=== PATIENT | female | born 1995 | race Hispanic/Latino ===

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

== ENCOUNTER 2017-04-14 01:10 | Emergency (ER) | payer OTHER ==
[2017-04-14] MEDS: NS 1,000 ML IV (02:36)
[2017-04-14] MEDS: KETOROLAC 30 MG/ML VIAL (J1885) IV (02:36)
[2017-04-14 02:47] LABS: BASO % 0.4 % (0.0-1.0); EOS # 0.2 10^3/uL (0.0-0.50); EOS % 1.9 % (0.0-3.0); HEMATOCRIT 36.8 % (36.0-47.0); HEMOGLOBIN 12.9 g/dl (12.0-16.0); IMMATURE GRANULOCYTE % 0.3 % (0-3.0); LYMPH # 1.7 10^3/uL (1.5-6.5); LYMPH % 17.8 % (24.0-44.0); MEAN CORPUSCULAR HEMOGLOBIN 31.9 pg (27.0-33.0); MEAN CORPUSCULAR HGB CONC 35.1 g/dl (32.0-36.5); MEAN CORPUSCULAR VOLUME 91.1 fl (80.0-96.0); MONO % 10.4 % (0.0-5.0); NEUTROPHILS # 6.5 10^3/uL (1.8-7.7); NEUTROPHILS % 69.2 % (36.0-66.0); PLATELET COUNT, AUTOMATED 251 10^3/uL (150-450); RED BLOOD COUNT 4.04 10^6/uL (4.00-5.40); RED CELL DISTRIBUTION WIDTH 12.4 % (11.5-14.5); WHITE BLOOD COUNT 9.4 10^3/uL (4.0-10.0)
[2017-04-14] MEDS: GASTROGRAFIN SOLUTION 30ML PO ×2 (02:49→03:20)
[2017-04-14 02:51] LABS: APPEARANCE, URINE CLOUDY (CLEAR); BACTERIA, URINE AUTO NEGATIVE (NEGATIVE); BILIRUBIN, URINE AUTO NEGATIVE (NEGATIVE); BLOOD, URINE BLOOD NEGATIVE (NEGATIVE); COLOR, URINE YELLOW (YELLOW); GLUCOSE, URINE (UA) AUTO NEGATIVE (NEGATIVE); KETONE, URINE AUTO NEGATIVE (NEGATIVE); LEUKOCYTE ESTERASE, URINE AUTO 1+ (NEGATIVE); MUCUS, URINE SMALL (NEGATIVE); NITRITE, URINE AUTO NEGATIVE (NEGATIVE); PROTEIN, URINE AUTO NEGATIVE (NEGATIVE); RBC, URINE AUTO 2 /HPF (0-3); SPECIFIC GRAVITY URINE AUTO 1.017 (1.002-1.035); SQUAMOUS EPITHELIAL CELL UR AU 21 /HPF (0-6); WBC, URINE AUTO 15 /HPF (0-3)
[2017-04-14 03:02] LABS: CONTROL LINE HCG INT CTR LINE PRESENT; HCG, SERUM QUALITATIVE NEGATIVE (NEGATIVE)
[2017-04-14 03:09] LABS: ALBUMIN 3.7 GM/DL (3.2-5.2); ALKALINE PHOSPHATASE 65 U/L (45-117); ALT/SGPT 21 U/L (12-78); ANION GAP 8 MEQ/L (8-16); AST/SGOT 14 U/L (7-37); BILIRUBIN,DIRECT < 0.1 MG/DL (0.0-0.2); BILIRUBIN,TOTAL 0.4 MG/DL (0.2-1.0); BLOOD UREA NITROGEN 9 MG/DL (7-18); CALCIUM LEVEL 8.2 MG/DL (8.5-10.1); CARBON DIOXIDE LEVEL 28 MEQ/L (21-32); CHLORIDE LEVEL 107 MEQ/L (98-107); GLUCOSE, FASTING 87 MG/DL (70-100); LIPASE 108 U/L (73-393); POTASSIUM SERUM 3.6 MEQ/L (3.5-5.1); SODIUM LEVEL 143 MEQ/L (136-145); TOTAL PROTEIN 7.4 GM/DL (6.4-8.2)
[2017-04-14] MEDS ORDERED: ISOVUE-370 76% 100ML VIAL (Q9967) As Ordered (04:10)
[2017-04-14] MEDS: NORCO 5/325MG TABLET (BULK FOR ED) PO (05:41)
== END 2017-04-14 05:47 | disposition home or self-care (01) ==
LOC: M ED 01:10
DX: N83.201 Unspecified ovarian cyst, right side (principal)
CPT/HCPCS: Q9963

== ENCOUNTER 2017-07-02 22:45 | Emergency (ER) | payer OTHER ==
[2017-07-03 01:54] LABS: BASO % 0.3 % (0.0-1.0); EOS # 0.2 10^3/uL (0.0-0.50); EOS % 2.1 % (0.0-3.0); HEMATOCRIT 41.4 % (36.0-47.0); HEMOGLOBIN 14.5 g/dl (12.0-15.5); IMMATURE GRANULOCYTE % 0.2 % (0-3.0); LYMPH # 2.4 10^3/uL (1.5-6.5); LYMPH % 23.2 % (24.0-44.0); MEAN CORPUSCULAR HEMOGLOBIN 31.4 pg (27.0-33.0); MEAN CORPUSCULAR VOLUME 89.6 fl (80.0-96.0); MONO # 0.9 10^3/uL (0.0-0.8); MONO % 8.9 % (0.0-5.0); NEUTROPHILS # 6.7 10^3/uL (1.8-7.7); NEUTROPHILS % 65.3 % (36.0-66.0); PLATELET COUNT, AUTOMATED 272 10^3/uL (150-450); RED BLOOD COUNT 4.62 10^6/uL (4.00-5.40); RED CELL DISTRIBUTION WIDTH 12.1 % (11.5-14.5); WHITE BLOOD COUNT 10.3 10^3/uL (4.0-10.0)
[2017-07-03 02:13] LABS: CONTROL LINE HCG INT CTR LINE PRESENT; HCG, SERUM QUALITATIVE NEGATIVE (NEGATIVE)
[2017-07-03 02:17] LABS: ANION GAP 6 MEQ/L (8-16); BLOOD UREA NITROGEN 12 MG/DL (7-18); CALCIUM LEVEL 9.2 MG/DL (8.5-10.1); CARBON DIOXIDE LEVEL 27 MEQ/L (21-32); CHLORIDE LEVEL 105 MEQ/L (98-107); CREATININE FOR GFR 0.74 MG/DL (0.55-1.30); GLUCOSE, FASTING 84 MG/DL (70-100); POTASSIUM SERUM 3.8 MEQ/L (3.5-5.1); SODIUM LEVEL 138 MEQ/L (136-145)
[2017-07-03] MEDS ORDERED: ISOVUE-370 76% 100ML VIAL (Q9967) As Ordered (03:15)
[2017-07-04 14:23] LABS: BEDSIDE GLUCOSE 92 MG/DL (70-105)
== END 2017-07-03 05:40 | disposition home or self-care (01) ==
LOC: M ED 22:45
DX: R06.4 Hyperventilation (principal); R20.9 Unspecified disturbances of skin sensation
CPT/HCPCS: Q9967

== ENCOUNTER 2017-07-13 23:34 | Emergency (ER) | payer OTHER ==
[2017-07-14] MEDS: diazePAM 5 MG TAB PO (00:30)
[2017-07-14] MEDS: KETOROLAC 60 MG/2 ML VIAL (J1885) IM (00:30)
== END 2017-07-14 01:52 | disposition home or self-care (01) ==
LOC: M ED 23:34
DX: M62.830 Muscle spasm of back (principal); R51 Headache; F17.200 Nicotine dependence, unspecified, uncomplicated; Z79.899 Other long term (current) drug therapy
CPT/HCPCS: J1885

== ENCOUNTER 2017-08-20 06:57 | Emergency (ER) | payer OTHER ==
[2017-08-20 07:57] LABS: BASO # 0.1 10^3/uL (0.0-0.2); BASO % 0.5 % (0.0-1.0); EOS # 0.2 10^3/uL (0.0-0.50); HEMATOCRIT 36.7 % (36.0-47.0); HEMOGLOBIN 13.2 g/dl (12.0-15.5); IMMATURE GRANULOCYTE % 0.5 % (0-3.0); LYMPH # 1.7 10^3/uL (1.5-6.5); LYMPH % 15.2 % (24.0-44.0); MEAN CORPUSCULAR HEMOGLOBIN 31.4 pg (27.0-33.0); MEAN CORPUSCULAR VOLUME 87.2 fl (80.0-96.0); MONO # 1.1 10^3/uL (0.0-0.8); MONO % 9.6 % (0.0-5.0); NEUTROPHILS # 7.9 10^3/uL (1.8-7.7); NEUTROPHILS % 72.2 % (36.0-66.0); PLATELET COUNT, AUTOMATED 233 10^3/uL (150-450); RED BLOOD COUNT 4.21 10^6/uL (4.00-5.40); RED CELL DISTRIBUTION WIDTH 12.6 % (11.5-14.5); WHITE BLOOD COUNT 10.9 10^3/uL (4.0-10.0)
[2017-08-20 08:09] LABS: KETONE, URINE AUTO RFX NEGATIVE (NEGATIVE); LEUKOCYTE ESTERASE UR AUTO RFX NEGATIVE (NEGATIVE); MUCUS, URINE RFX SMALL (NEGATIVE); NITRITE, URINE AUTO RFX NEGATIVE (NEGATIVE); RBC, URINE AUTO RFX 1 /HPF (0-3); SPECIFIC GRAVITY UR AUTO RFX 1.002 (1.002-1.035); SQUAM EPITHELIAL CELL UR AURFX 1 /HPF (0-6); WBC, URINE AUTO RFX 0 /HPF (0-3)
[2017-08-20 08:46] LABS: HCG, SERUM QUANTITATIVE 21646 MIU/ML
[2017-08-20 10:45] LABS: CHLAMYDIA DNA AMPLIFICATION NEGATIVE (NEGATIVE); GC DNA AMPLIFICATION NEGATIVE (NEGATIVE)
== END 2017-08-20 09:21 | disposition home or self-care (01) ==
LOC: M ED 06:57
DX: O20.0 Threatened abortion (principal); Z3A.01 Less than 8 weeks gestation of pregnancy; O09.291 Supervision of pregnancy with other poor reproductive or obstetric history, first trimester
CPT/HCPCS: 76801

== ENCOUNTER 2017-11-10 21:13 | Emergency (ER) | payer OTHER ==
[2017-11-10 23:00] LABS: BASO % 0.2 % (0.0-1.0); EOS # 0.2 10^3/uL (0.0-0.50); EOS % 1.5 % (0.0-3.0); HEMATOCRIT 38.4 % (36.0-47.0); HEMOGLOBIN 13.6 g/dl (12.0-15.5); IMMATURE GRANULOCYTE % 0.5 % (0-3.0); LYMPH # 2.3 10^3/uL (1.5-6.5); LYMPH % 17.6 % (24.0-44.0); MEAN CORPUSCULAR HEMOGLOBIN 31.6 pg (27.0-33.0); MEAN CORPUSCULAR HGB CONC 35.4 g/dl (32.0-36.5); MEAN CORPUSCULAR VOLUME 89.3 fl (80.0-96.0); MONO # 0.9 10^3/uL (0.0-0.8); MONO % 6.8 % (0.0-5.0); NEUTROPHILS # 9.7 10^3/uL (1.8-7.7); NEUTROPHILS % 73.4 % (36.0-66.0); PLATELET COUNT, AUTOMATED 230 10^3/uL (150-450); RED CELL DISTRIBUTION WIDTH 12.6 % (11.5-14.5); WHITE BLOOD COUNT 13.2 10^3/uL (4.0-10.0)
[2017-11-10 23:02] LABS: KETONE, URINE AUTO RFX NEGATIVE (NEGATIVE); LEUKOCYTE ESTERASE UR AUTO RFX NEGATIVE (NEGATIVE); NITRITE, URINE AUTO RFX NEGATIVE (NEGATIVE); RBC, URINE AUTO RFX 2 /HPF (0-3); SPECIFIC GRAVITY UR AUTO RFX 1.013 (1.002-1.035); SQUAM EPITHELIAL CELL UR AURFX 2 /HPF (0-6); WBC, URINE AUTO RFX 1 /HPF (0-3)
[2017-11-10] MEDS: ACETAMINOPHEN TAB 650MG DOSE (2X325MG) PO (23:22)
[2017-11-11 00:12] LABS: CHLAMYDIA DNA AMPLIFICATION NEGATIVE (NEGATIVE); GC DNA AMPLIFICATION NEGATIVE (NEGATIVE)
== END 2017-11-11 00:54 | disposition home or self-care (01) ==
LOC: M ED 11-11 00:54
DX: O20.9 Hemorrhage in early pregnancy, unspecified (principal); Z3A.18 18 weeks gestation of pregnancy; Z87.42 Personal history of other diseases of the female genital tract
CPT/HCPCS: 76811

== ENCOUNTER → 2018-01-21 | Outpatient (CLI) | payer OTHER | LOC: M RAD 09:03 | DX: Z36.89 Encounter for other specified antenatal screening (principal); Z3A.28 28 weeks gestation of pregnancy | CPT/HCPCS: 76816 ==

== ENCOUNTER 2018-03-24 18:47 | Outpatient (CLI) | payer OTHER ==
[~2018-03-24] VITALS: Ht 157.5 cm; Wt 128.9 kg
[~2018-03-24 18:47] MED LIST: HYDR50TA70 PO; NAPR-50; NAPR-50 PO; PRENTAB40 PO; ROBA500T PO; SERT50TA PO
[2018-03-24 19:45] VITALS: BP 117/65
[2018-03-24 19:47] LABS: HEMATOCRIT 36.2 % (36.0-47.0); HEMOGLOBIN 12.7 g/dl (12.0-15.5); MEAN CORPUSCULAR HEMOGLOBIN 30.5 pg (27.0-33.0); MEAN CORPUSCULAR HGB CONC 35.1 g/dl (32.0-36.5); PLATELET COUNT, AUTOMATED 260 10^3/uL (150-450); RED BLOOD COUNT 4.16 10^6/uL (4.00-5.40); WHITE BLOOD COUNT 10.7 10^3/uL (4.0-10.0)
[2018-03-24 19:59] LABS: INR 1.01; PROTHROMBIN TIME 13.4 SECONDS (12.1-14.4)
[2018-03-24 20:00] LABS: PARTIAL THROMBOPLASTIN TIME 27.7 SECONDS (25.4-37.6)
--- NOTE | 2018-03-24 22:37 | REPVR ---
EXAM: US Biophysical Profile Without Non-Stress Test EXAM DATE/TIME: 03/24/2018 10:05 PM CLINICAL HISTORY: 23 years old, female; Injury or trauma; Fall; Injury indication: Fell on abdomen and face, eval placenta; Injury date: 03/24/18; ; Additional info: Fell on abdomen and face, eval placenta also TECHNIQUE: US biophysical profile without non-stress testing. COMPARISON: US OBS SINGEL GEST 11/10/2017 10:52 PM FINDINGS: Breathin/2 Gross body movements: 2/2 tone: 2/2 Qualitative amniotic fluid: 2/2 AAKASH 9.5 cm. Cephalic presentation Cervical length 3.3 cm. Antral fundal placenta. No placenta previa. heart rate 149 beats per minute. IMPRESSION: Biophysical profile score is 8 out of 8. Electronically signed by: Michael Hurt On 03/24/2018 22:36:55 PM
[2018-03-24 22:42] VITALS: BP 125/75
[2018-03-25 00:07] VITALS: BP 135/79
== END 2018-03-25 00:15 | disposition home or self-care (01) ==
LOC: M LDO 18:47
PROVIDERS: ATTEND Obstetrics & Gynecology
DX: O99.89 Other specified diseases and conditions complicating pregnancy, childbirth and the puerperium (principal); Z3A.37 37 weeks gestation of pregnancy; W19.XXXA Unspecified fall, initial encounter
CPT/HCPCS: 36415; 59025; 76815; 76819; 76820; 85027; 85384; 85610; 85730; G0378; G0463

== ENCOUNTER 2018-04-08 14:38 | Outpatient (CLI) | payer OTHER ==
[~2018-04-08] VITALS: Ht 157.5 cm; Wt 129.0 kg
[2018-04-08 15:03] VITALS: BP 140/67
[2018-04-08 15:34] VITALS: BP 140/70
== END 2018-04-08 15:48 | disposition home or self-care (01) ==
LOC: M LDO 14:38
PROVIDERS: ATTEND Obstetrics & Gynecology
DX: O99.213 Obesity complicating pregnancy, third trimester (principal); E66.9 Obesity, unspecified; Z3A.39 39 weeks gestation of pregnancy

== ENCOUNTER 2018-04-09 11:11 | Inpatient (IN) | payer OTHER ==
[~2018-04-09] VITALS: Ht 170.2 cm; Wt 128.5 kg
[2018-04-09] VITALS (40 sets, daily range): BP systolic 106–134; BP diastolic 55–97
[2018-04-09] MEDS ORDERED: LACTATED RINGER'S 1000 ML IV STA (12:32)
[2018-04-09] MEDS ORDERED: LR 1,000 ML IV SCH (12:32)
[2018-04-09] MEDS ORDERED: OXYTOCIN DRIP 30 UNITS in APPROPRIATE DILUENT 1 EA IV SCH (12:45)
--- NOTE | 2018-04-09 12:49 | HPEPDOC ---
Obstetrical History & Physical General Date of Admission Apr 09, 2018 at 11:11 History of Present Illness 22 y/o at 39+1 presents for IOL. No significant LOF/VB. Some ctx's. Pos FM. Preg c/b class 3 obesity, varicella nonimmune status and a 2VC. Information Provided By: Patient Care Care: Good Care Dating Final EDC by: 1st trimester (US) Past Medical History Past Obstetrical History : Past Obstetrical History: Primgravida ORTHOPAEDIC NURSE History: No pertinent history Past Medical History Surgical History: Denies/None Family History Significant Family History: No pertinent family hx Social History Marital Status: Family situation: Spouse/partner home Psychosocial History: No pertinent psych hx * Smoker: non-smoker Alcohol: Denies Drugs: denies Abuse Violence Screening Have you been hit/kicked/slapp: No Have you been sexually assault: No Imunizations Tdap status: current Influenza Status: current Allergies Coded Allergies: Latex (Verified Allergy, Mild, HIVES, 04/09/18) Medications Scheduled Multivitamins/ ( and Iron) 1 Tab Tab, 1 TAB PO DAILY Physical Examination Physical Examination GENERAL: Alert and oriented times three ABDOMEN: Gravid and non-tender to touch. FETUS: Is vertex (VTX) by sterile vaginal examination (SVE), 3/75/-3/vtx EXTREMITIES: No edema. Vital Signs/I&O Vital Signs Date Time Temp Pulse Resp B/P (MAP) Pulse Ox O2 Delivery O2 Flow Rate FiO2 04/09/18 11:29 97.0 113 18 118/64 (82) 98 Laboratory Data 24H LABS Laboratory Tests 2 04/09/18 11:24: Serology Scanned Report Hepatitis B Testing Urine Culture: No Growth Pertinent Laboratoy Data Blood Type: O+ RBC Antibody Screen: Negative HIV: Negative Hepatitis B: Negative Rapid Plasma Reagin: Nonreactive Rubella: Immune Varicella: Nonreactive (nonimmune) Chlamydia/Gonorrhea: Negative Group B Streptococcus: Negative Quad Screen Test: Negative Cystic Fibrosis: Declined Anatomy Ultrasound Placenta Location: Anterior Normal Anatomy: No (normal other than 2VC) Placenta Previa: No Assessment Variability: Moderate Accelerations: Positive Decelerations: None Tocometer Contractions: Yes Frequency: irregular Duration: greater than 60 seconds Strength: palpated as moderate Assessment/Plan Assessment IOL at 39+1 for obesity and 2VC Plan Admit and orient. [employer] and consent. Diet: clears Group B Streptococcus (GBS) neg Labs and intravenous (IV) per unit protocol. Counseled on Pitocin and induction of labor (IOL). Lactated Ringers (LR): Bolus 1000 mL if decides on epidural, o/w at 125/hr Anticipate normal spontaneous delivery () C-S as appropriate. Sessions SESSIONS,JOSE Riley MD Apr 09, 2018 12:49
[2018-04-09] MEDS: LR 1,000 ML IV SCH ×2 (12:54→17:55)
[2018-04-09 13:38] LABS: HEMATOCRIT 36.1 % (36.0-47.0); HEMOGLOBIN 12.8 g/dl (12.0-15.5); MEAN CORPUSCULAR HEMOGLOBIN 30.3 pg (27.0-33.0); MEAN CORPUSCULAR HGB CONC 35.5 g/dl (32.0-36.5); MEAN CORPUSCULAR VOLUME 85.5 fl (80.0-96.0); PLATELET COUNT, AUTOMATED 252 10^3/uL (150-450); RED BLOOD COUNT 4.22 10^6/uL (4.00-5.40); WHITE BLOOD COUNT 11.1 10^3/uL (4.0-10.0)
[2018-04-09] MEDS ORDERED: FENTANYL 2MCG/ML ROPIVACAINE 0.2% IN 0.9% NACL 100ML IVBAG As Ordered ONE (18:56)
[2018-04-09] MEDS ORDERED: diphenhydrAMINE INJ 50MG/ML VIAL (J1200) IV PRN (21:00)
[2018-04-09] MEDS ORDERED: LACTATED RINGER'S 1000 ML IV PRN (21:00)
[2018-04-09] MEDS ORDERED: EPIDURAL COMMENT XX SCH (21:00)
[2018-04-09] MEDS ORDERED: ePHEDrine SULFATE 25 MG/5 ML(5MG/ML) SYRINGE IV PRN (21:00)
[2018-04-09] MEDS ORDERED: FENTANYL/ROPIVACAINE/NACL BAG 100 ML EPIDURAL SCH (21:00)
[2018-04-09] MEDS ORDERED: NALOXONE INJ 0.4 MG/1 ML VIAL (J2310) IV PRN (21:00)
[2018-04-09] MEDS ORDERED: ONDANSETRON 4MG/2ML VIAL (J2405) IV PRN (21:00)
[2018-04-09] MEDS ORDERED: EPIDURAL/PCA KEYS XX PRN (21:00)
[2018-04-09] MEDS ORDERED: REFRIGERATOR IV KEYS XX PRN (21:00)
--- NOTE | 2018-04-09 21:08 | IPNPDOC ---
Text Note Date of Service The patient was seen on 04/09/18. NOTE Pitocin at 10 mu/min Now s/p epidural and haney and feeling much better Significant difficulty with fhr monitoring and toco impossible all afternoon due to abdom girth Cervix 4/80/-1/vtx well applied. AROM with clr fluid and full internals placed to better and more safely guide pitocin use Recheck in 3-4 hrs, sooner prn. Sessions VS,[place], I+O [place] I+O Laboratory Tests 04/09/18 12:58 Red Blood Count 4.22, Mean Corpuscular Volume 85.5, Mean Corpuscular Hemoglobin 30.3, Mean Corpuscular Hemoglobin Concent 35.5, Red Cell Distribution Width 14.1 Vital Signs Date Time Temp Pulse Resp B/P (MAP) Pulse Ox O2 Delivery O2 Flow Rate FiO2 04/09/18 19:01 81 18 114/58 (76) 04/09/18 18:31 97.5 04/09/18 11:29 98 SESSIONS,JOSE Riley MD Apr 09, 2018 21:08
[2018-04-10 00:05] VITALS: BP 98/53
[2018-04-10] MEDS ORDERED: OXYTOCIN DRIP 30 UNITS in APPROPRIATE DILUENT 1 EA IV SCH (02:34)
--- NOTE | 2018-04-10 02:42 | DNPDOC ---
[facility] Delivery Note Delivery Note DATE OF DELIVERY: [id number] PREDELIVERY DIAGNOSIS: 39 2/7 weeks' gestation and labor. POST DELIVERY DIAGNOSIS: Delivered. PROCEDURE: Spontaneous vaginal deliver FEATHER BALER: Dr. Cho ANESTHESIA: epidural ESTIMATED BLOOD LOSS: 200 mL. FINDINGS: 6 pound 1 ounce female , Score 8/9 DELIVERY SUMMARY: Surprisingly complete very quickly and only pushed a few times. No delay of the vtx or the ant/post shoulders, ant shoulder left. To abd in great shape. Cord C/C by FOB. Cord blood. Placenta intact, fundus firm and pit going 999. Small right sided lac repaired with single 3-0 vicryl figure of eight, hemostasis noted. Intact per and Cx. Uncomplicated. Pam CHO,JOSE Riley MD Apr 10, 2018 02:42
[2018-04-10] MEDS ORDERED: ACETAMINOPHEN TAB 650MG DOSE (2X325MG) PO PRN (02:45)
[2018-04-10] MEDS ORDERED: DIBUCAINE 1% OINTMENT 30GM TOP PRN (02:45)
[2018-04-10] MEDS ORDERED: RHOGAM 300 MCG (1500 IU) INJ (J2790) IM SCH (02:45)
[2018-04-10] MEDS ORDERED: METOCLOPRAMIDE INJ 10MG/2ML VIAL (J2765) IV PRN (02:45)
[2018-04-10] MEDS ORDERED: MEASLES,MUMPS,RUBELLA VACCINE INJ (MMR-II) (90707) SC SCH (02:45)
[2018-04-10 06:14] VITALS: BP 122/69
[2018-04-10] MEDS: PRENATAL VITAMINS CHEWABLE TABLET PO SCH (08:04)
[2018-04-10] MEDS: DOCUSATE SODIUM 100 MG CAP PO SCH ×2 (08:05→20:55)
[2018-04-10] MEDS: IBUPROFEN 800 MG TAB PO PRN (15:15)
[2018-04-10 18:37] VITALS: BP 120/64
[2018-04-11 06:08] VITALS: BP 128/72
--- NOTE | 2018-04-11 07:42 | IPNPDOC ---
Progress Note Date of Service: Apr 11, 2018 Progress Note Ms. Rahman is a 23 yo G1 now P1 who underwent an uncomplicated yesterday after being admitted for an IOL for Class III obesity. Ms. rahman reports feeling well this morning. She is ambulating, voiding, and tolerating a regular diet. She has minimal lochia. Vitals - VSS, afebrile, normotensive, nontachycardic General - AAOX3, sitting up in bed, NAD Abdomen - Fundus firm at U-2. No fundal tenderness. Extremities - No edema UO - appropriate Ms. Rahman is doing well this AM and is making an appropriate recovery. Continue to encourage ambulation and . Continue routine care. Anticipate dc home tomorrow. Comfort Anderson DO VS, I&O, 24H, Fishbone Vital Signs/I&O Vital Signs Date Time Temp Pulse Resp B/P (MAP) Pulse Ox O2 Delivery O2 Flow Rate FiO2 04/11/18 06:08 98.4 70 16 128/72 (90) 04/09/18 11:29 98 I&O- Last 24 Hours up to 6 AM 04/11/18 06:00 Output Total 1000 ml Balance -1000 ml COMFORT ANDERSON DO Apr 11, 2018 07:42
[2018-04-11] MEDS: PRENATAL VITAMINS CHEWABLE TABLET PO SCH (09:35)
[2018-04-11] MEDS: DOCUSATE SODIUM 100 MG CAP PO SCH ×2 (09:35→21:49)
[2018-04-11] MEDS: IBUPROFEN 800 MG TAB PO PRN (18:21)
[2018-04-11 18:43] VITALS: BP 127/76
[2018-04-12] MEDS: IBUPROFEN 800 MG TAB PO PRN (04:36)
[2018-04-12 05:49] VITALS: BP 121/71
[2018-04-12] MEDS ORDERED: COLA100C5 PO (08:21)
[2018-04-12] MEDS ORDERED: MAPA500T2 PO (08:21)
[2018-04-12] MEDS ORDERED: IBUP-1114 PO (08:21)
[2018-04-12] MEDS ORDERED: NUPE1OIN2 TOP (08:21)
[2018-04-12] MEDS: DOCUSATE SODIUM 100 MG CAP PO SCH (10:07)
[2018-04-12] MEDS: PRENATAL VITAMINS CHEWABLE TABLET PO SCH (10:08)
--- NOTE | 2018-04-13 17:13 | DSES ---
DATE OF ADMISSION: 04/09/2018 DATE OF DISCHARGE: 04/12/2018 This is a 23-year-old, 1, now para 1, was admitted for induction of labor at 39 weeks of gestation because of class III obesity and two-vessel cord. She had a spontaneous vaginal delivery with epidural in place, a live female infant, 6 pounds 1 ounce with scores of 8 and 9 at 1 and 5 minutes respectively. On discharge, we discussed phlebitis, cystitis, mastitis, endometritis and cellulitis, diet, exercise, pain management, perineal, breast and wound care. The patient is going to review control at her 6-week checkup. Admitting hemoglobin was 12.8, hematocrit 36.1 and platelets were 252. Her blood pressure on discharge was 121/71, respirations 19, pulse 90, temperature 97.1. The rest of the examination was unremarkable. Normocephalic, atraumatic. Neck full range of motion. Pupils equal and reactive to light. Distal pulses are symmetric. No evidence of DVT, PE or superficial phlebitis. Chest is clear bilaterally to bases. No wheezes or rhonchi. No CVA tenderness. Uterus is two below. Lochia is moderate. Perineum is healing. Four quadrant bowel sounds are noted. No rashes, lesions or pruritus. No arthralgia or myalgia. No complaints of cough, wheezes, shortness of breath or dyspnea on exertion. No nausea, vomiting, diarrhea or constipation. The patient was dispensed medications at discharge. She has a 6-week checkup. All questions were answered.
== END 2018-04-12 11:45 | disposition home or self-care (01) | DRG 807 ==
LOC: M LDI 11:11 → M OBS 04-10 04:53
PROVIDERS: ADMIT Obstetrics & Gynecology; ATTEND Obstetrics & Gynecology
PROC: 10E0XZZ Delivery of Products of Conception, External Approach (ICD-10-PCS; principal; 2018-04-10)
PROC: 0HQ9XZZ Repair Perineum Skin, External Approach (ICD-10-PCS; 2018-04-10)
DX: O99.214 Obesity complicating childbirth (principal); Z37.0 Single live birth; E66.9 Obesity, unspecified; Z3A.39 39 weeks gestation of pregnancy; O70.0 First degree perineal laceration during delivery